=== PATIENT | female | born 1965 | race Caucasian/White ===

== ENCOUNTER 2017-04-18 17:00 | Inpatient (IN) | payer MEDICARE, MEDICAID ==
[~2017-04-18] VITALS: Ht 167.6 cm; Wt 81.8 kg
[2017-04-18 17:34] VITALS: BP 118/77
[2017-04-18 18:44] LABS: BASOPHILS 0.5 % (0-2); EOSINOPHILS 3.3 % (0-7); HEMATOCRIT 35.8 % (36.0-48.0); IMMATURE GRANULOCYTES 0.2 % (0-5); LYMPHOCYTES 31.3 % (15-50); MCH 28.6 pg (26.0-34.0); MCHC 30.7 g/dL (31.0-37.0); MCV 93.2 fL (80.0-100.0); MEAN PLATELET VOLUME 9.6 fL (7.4-10.4); MONOCYTES 6.8 % (2-11); NEUTROPHILS 57.9 % (40-80); RBC 3.84 10x6/uL (4.00-5.40); RDW 20.5 % (11.5-14.5); WBC 4.3 10x3/uL (4.8-10.8)
[2017-04-18 18:49] LABS: PLATELET COUNT 242 10x3/uL (130-400)
[2017-04-18 19:14] LABS: ALBUMIN 4.3 g/dL (3.4-5.0); ALKALINE PHOSPHATASE 66 U/L (46-116); ALT (SGPT) 30 U/L (10-68); BILIRUBIN - TOTAL 0.17 mg/dL (0.2-1.3); CALC OSMOLALITY 290 mosm/kg (275-300); CALCIUM 8.4 mg/dL (8.5-10.1); CARBON DIOXIDE 25.8 mmol/L (21.0-32.0); CHLORIDE - SERUM 107 mmol/L (98-107); CREATININE - SERUM 0.7 mg/dL (0.6-1.3); GLUCOSE 175 mg/dL (74-106); POTASSIUM - SERUM 4.4 mmol/L (3.5-5.1); PROTEIN - SERUM 5.6 g/dL (6.4-8.2); SODIUM 143 mmol/L (136-145); UREA NITROGEN 17 mg/dL (7-18); eGFR NON AFRICAN AMERICAN > 90 mL/min (90-120)
[2017-04-18 20:00] VITALS: BP 120/45
--- NOTE | 2017-04-18 20:00 | NUR ---
ASSESSMENT PER ADMIT PACKET. IV SALINE LOCKED RT ARM SITE CLEAR. FAMILY MEMBERS AT BEDSIDE. NEURO CHECKS DONE RT SIDED WEAKNESS NOTED SHEECH CLEAR ALERT/ORIENTED X3. UP TO BR SHOWER TAKEN WITH HELP OF HER DAUGHTER.
[2017-04-18] MEDS ORDERED: BAYER CHEWABLE81 MG PO (20:20)
[2017-04-18] MEDS ORDERED: LIPITOR80 MG PO (20:21)
[2017-04-18] MEDS ORDERED: KEPPRA500 MG PO (20:21)
[2017-04-18] MEDS ORDERED: ESTRACE1 MG PO (20:23)
[2017-04-18] MEDS ORDERED: ZOFRAN ODT4 MG/UDTAB PO (20:24)
[2017-04-18] MEDS ORDERED: BACLOFEN10 MG PO (20:24)
[2017-04-18] MEDS ORDERED: NEURONTIN 300300 MG PO (20:26)
[2017-04-18] MEDS ORDERED: PROZAC20 MG PO (20:26)
[2017-04-18] MEDS ORDERED: HYDROCODONE-APA1 TAB PO (20:27)
[2017-04-18] MEDS ORDERED: SYNTHROID125 MCG PO (20:28)
[2017-04-18] MEDS ORDERED: PROVERA2.5 MG PO (20:28)
[2017-04-18] MEDS ORDERED: SINGULAIR10 MG PO (20:29)
[2017-04-18] MEDS ORDERED: MOVANTIK25 MG PO (20:30)
[2017-04-18] MEDS ORDERED: MULTIPLE VITAMI1 TA1 PO (20:30)
[2017-04-18] MEDS ORDERED: PROTONIX40 MG PO (20:31)
[2017-04-18] MEDS ORDERED: CARAFATE1 G PO (20:32)
[2017-04-18] MEDS ORDERED: PHENERGAN25 M1 PO (20:32)
[2017-04-18] MEDS ORDERED: REQUIP0.25 MG PO (20:32)
[2017-04-18] MEDS ORDERED: ZANAFLEX4 MG PO (20:33)
[2017-04-18 20:34] VITALS: Ht 167.6 cm; Wt 81.8 kg
--- NOTE | 2017-04-18 21:00 | NUR ---
PT CONCERNED ABOUT HER HOME MEDS AND DR. FLORENTINO HAS NOT COME YET. NOTIFIED SUELLEN FELDMAN ORDERS REC'D.
--- NOTE | 2017-04-18 22:00 | NUR ---
DR. FLORENTINO PER ORDERS REC'D. MEDS GIVEN PER DEC. RADHA TAB ONE GIVEN FOR PAIN CONTROL OF HEAD AND BACK. RATES PAIN LEVEL #10.
[2017-04-19] VITALS: BP 97/49
--- NOTE | 2017-04-19 | NUR ---
EYES CLOSED RESPIRATIONS WITH EASE AND UNLABORED. NEURO CHECKS REMAIN UNCHANGED. RT SIDED WEAKNESS REMAINS SPEECH CLEAR AND APPROPRIATE.
--- NOTE | 2017-04-19 02:00 | NUR ---
EYES CLOSED RESPIRATIONS WITH EASE AND ULABORED. TELM SHOWS SB WITH HR 56.
[2017-04-19 04:00] VITALS: BP 96/62
--- NOTE | 2017-04-19 04:30 | NUR ---
EYES CLOSED RESPIRATIONS WITHEASE AND UNLABORED.
[2017-04-19 05:00] LABS: BASOPHILS 0.4 % (0-2); EOSINOPHILS 4.4 % (0-7); HEMATOCRIT 35.3 % (36.0-48.0); HEMOGLOBIN 10.8 g/dL (12-16); LYMPHOCYTES 44.8 % (15-50); MCHC 30.6 g/dL (31.0-37.0); MCV 94.6 fL (80.0-100.0); MEAN PLATELET VOLUME 10.1 fL (7.4-10.4); MONOCYTES 8.8 % (2-11); NEUTROPHILS 41.6 % (40-80); PLATELET COUNT 254 10x3/uL (130-400); RBC 3.73 10x6/uL (4.00-5.40); RDW 20.7 % (11.5-14.5); WBC 4.6 10x3/uL (4.8-10.8)
[2017-04-19 05:26] LABS: ALKALINE PHOSPHATASE 58 U/L (46-116); CARBON DIOXIDE 30.7 mmol/L (21.0-32.0); CHLORIDE - SERUM 109 mmol/L (98-107); CREATININE - SERUM 0.7 mg/dL (0.6-1.3); POTASSIUM - SERUM 4.5 mmol/L (3.5-5.1); PROTEIN - SERUM 5.1 g/dL (6.4-8.2); SODIUM 144 mmol/L (136-145); UREA NITROGEN 16 mg/dL (7-18); eGFR NON AFRICAN AMERICAN > 90 mL/min (90-120)
--- NOTE | 2017-04-19 05:40 | NUR ---
NO CHANGES IN ASSESSMENT.
[2017-04-19 05:55] LABS: ALBUMIN 2.8 g/dL (3.4-5.0); ALT (SGPT) 21 U/L (10-68); CALC OSMOLALITY 286 mosm/kg (275-300); CALCIUM 8.7 mg/dL (8.5-10.1); GLUCOSE 83 mg/dL (74-106)
--- NOTE | 2017-04-19 07:15 | NUR ---
REPORT RECEIVED FROM NON PROFIT FINANCIAL CONTROLLER NURSE. CALL LIGHT IN REACH.
--- NOTE | 2017-04-19 07:46 | NUR ---
ASSESSMENT COMPLETED. REQUESTING PAIN MEDS SO NORCO GIVEN WITH AM MEDS. OFFERED SCDs BUT PATIENT REFUSED. DAUGHTER AT BEDSIDE. NPO NOW FOR CTA. CALL LIGHT IN REACH. WILL CONTINUE WITH PLAN OF CARE.
--- NOTE | 2017-04-19 08:25 | NUR ---
IV SITED TO RIGHT AC WITH 20 GA X2 STICKS FOR CTA.
[2017-04-19 08:44] VITALS: BP 112/64
--- NOTE | 2017-04-19 09:50 | NUR ---
Patient Name: ANATOLY ZARCO Admission Status: Elective Accout number: [id number] Admission Date: 04-18-2017 : 1965 Admission Diagnosis: Attending: PHILL Current LOS: 1 Anticipated DC Date: 04-21-2017 Planned Disposition: Home Primary Insurance: [facility] Discharge Planning Comments: CM MET WITH PATIENT AND DAUGHTER (NOEMI) REGARDING D/C NEEDS AND PLANS. PATIENT STATED HER DAUGHTER AND SON LIVE WITH HER AND HELPS WHEN NEEDED. PATIENTS DAUGHTER WILL DRIVE HER HOME AT DISCHARGE AND THERE ARE NO STEPS OR STAIRS AT HER HOME. PATIENT IS INDEPENDENT WITH HER CARE AND HAS A WALKER, AND GLUCOMETER (NO STRIPS) AT HOME. PATIENTS PCP IS DR. CROWDER AND PHARMACY IS [facility]. PATIENT STATED SHE CAME HERE FROM [facility] AND WILL GO HOME AT DISCHARGE AND DOES NOT WANT HOME HEALTH. CM WILL CONTINUE TO FOLLOW PATIENT WITH D/C NEEDS AND PLANS. PCP DR. VEL BERRIOS [facility]- [phone] NOEMI (DAUGHTER) [phone] Mixing Machine Attendant: May Shah Is the patient Alert and Oriented? Yes 0 * How many steps to enter\exit or inside your home? 0 0 * PCP DR. CROWDER 0 * [facility] 0 * Preadmission Environment Home with Family 0 * ADLs Independent 0 * Equipment Glucometer Walker 0 * List name and contact numbers for known caregivers / representatives who currently or will assist patient after discharge: NOEMI (DAUGHTER) [phone] 0 * Community resources currently utilized None 0 * Additional services required to return to the preadmission environment? Yes 0 * Can the patient safely return to the preadmission environment? Yes 0 * Has this patient been hospitalized within the prior 30 days at any hospital? No 0 Grand Total: 0
--- NOTE | 2017-04-19 10:27 | NUR ---
TO CT VIA BED.
--- NOTE | 2017-04-19 10:53 | NUR ---
BACK IN ROOM AT THIS TIME.
--- NOTE | 2017-04-19 11:44 | NUR ---
TORADOL 30 MG SIVP PER C/O PAIN OF 9. FAMILY IN ROOM. CALL LIGHT IN REACH.
--- NOTE | 2017-04-19 12:50 | NUR ---
PATEINT IN MID HERNANDEZ POSITION RESTING WITH EYES CLOSED. RESPIRATIONS EVEN AND UNLABORED. SIDE RAILS UP X2. BED IN LOW POSITION. CALL LIGHT IN REACH.
--- NOTE | 2017-04-19 13:29 | NUR ---
ZOFRAN AND DEMEROL SIVP PER C/O NAUSEA AND PAIN.
[2017-04-19 13:37] VITALS: BP 118/68
--- NOTE | 2017-04-19 15:18 | NUR ---
STILL C/O HEADACHE. SOLUMEDROL IV WITH NORCO PO AND OTHER AFTERNOON MEDS. CALL LIGHT IN REACH. DAUGHTER IN ROOM.
[2017-04-19 16:35] VITALS: BP 122/64
--- NOTE | 2017-04-19 16:56 | NUR ---
STATES PAIN HAS DECREASED TO A 7 NOW.
--- NOTE | 2017-04-19 17:11 | NUR ---
OT NOTE: PT COMPLETED GROOMING TASK WITH SET UP. PT COMPLETED BED MOB WITH SBA. PT COMPLETED BUE AROM EXS FOR INCREASED I WITH ADLS. THANK YOU, AILIN BERUMEN/Hu
--- NOTE | 2017-04-19 18:09 | NUR ---
NO CHANGES IN INITIAL ASSESSMENT. STILL REFUSES SCDs. CALL LIGHT IN REACH. WILL CONTINUE WITH PLAN OF CARE.
--- NOTE | 2017-04-19 19:25 | NUR ---
REQUESTING FOR BLOOD SUGAR TO GET TAKEN. IT WAS 183.
--- NOTE | 2017-04-19 19:30 | NUR ---
ASSESSMENT PER FLOWSHEET. RT SIDED WEAKNESS. CONTINUES SPEECH CLEAR AND APPROPRIATE. FOLLOWS COMMANDS. SALINE LOCK PATEMT RT HAND AND LEFT AC. SITES X2 CLAEAR. FAMILY MEMBERS AT BEDSIDE. SITTING UPRIGHT IN BED SR UP X2 CALL LIGHT WITHIN REACH.
[2017-04-19 20:00] VITALS: BP 123/74
--- NOTE | 2017-04-19 20:07 | NUR ---
C/O NAUSEA. ZOFRAN 4MG IVP GIVEN FOR NAUSEA. NOW REQUESTING A SANDWICH TRAY AND WANTS BLOOD SUGAR CHECKED. RESULTS =122.
--- NOTE | 2017-04-19 21:26 | NUR ---
C/O PAIN IN HEAD AND BACK RATES PAIN #7. TORADOL 30MG IVP GIVEN FOR PAIN CONTROL.
[2017-04-20] VITALS: BP 119/68
--- NOTE | 2017-04-20 | NUR ---
NEURO CHECKS REMAIN UNCHANGED.
--- NOTE | 2017-04-20 02:00 | NUR ---
EYES CLOSED RESPIRATIONS WITH EASE AND UNALBORED.
--- NOTE | 2017-04-20 03:57 | NUR ---
EYES CLOSED RESPIRATIONS WITH EASE AND UNLABORED. NEURO STATUS UNCHANGED.
[2017-04-20 04:00] VITALS: BP 101/56
[2017-04-20 06:19] LABS: BASOPHILS 0.2 % (0-2); EOSINOPHILS 0.5 % (0-7); HEMATOCRIT 36.7 % (36.0-48.0); HEMOGLOBIN 11.4 g/dL (12-16); IMMATURE GRANULOCYTES 0.2 % (0-5); LYMPHOCYTES 24.6 % (15-50); MCH 28.9 pg (26.0-34.0); MCHC 31.1 g/dL (31.0-37.0); MCV 93.1 fL (80.0-100.0); MONOCYTES 7.2 % (2-11); NEUTROPHILS 67.3 % (40-80); PLATELET COUNT 266 10x3/uL (130-400); RBC 3.94 10x6/uL (4.00-5.40); RDW 20.1 % (11.5-14.5)
[2017-04-20 06:30] LABS: WBC 6.2 10x3/uL (4.8-10.8)
[2017-04-20 06:46] LABS: ALBUMIN 2.8 g/dL (3.4-5.0); ALKALINE PHOSPHATASE 64 U/L (46-116); ALT (SGPT) 23 U/L (10-68); CALC OSMOLALITY 288 mosm/kg (275-300); CALCIUM 8.5 mg/dL (8.5-10.1); CARBON DIOXIDE 30.7 mmol/L (21.0-32.0); CHLORIDE - SERUM 110 mmol/L (98-107); CHOL - HDL RATIO 1.9 ratio (2.3-4.1); CHOLESTEROL, TOTAL 137 mg/dL (0-200); CREATININE - SERUM 0.8 mg/dL (0.6-1.3); GLUCOSE 86 mg/dL (74-106); HDL CHOLESTEROL 74 mg/dL (32-96); LDL CHOLESTEROL 54 mg/dL (0-100); LDL-HDL RATIO 0.7 ratio (1.5-3.5); POTASSIUM - SERUM 4.3 mmol/L (3.5-5.1); PROTEIN - SERUM 5.3 g/dL (6.4-8.2); SODIUM 145 mmol/L (136-145); TRIGLYCERIDE 47 mg/dL (30-200); UREA NITROGEN 16 mg/dL (7-18); eGFR NON AFRICAN AMERICAN 80 mL/min (90-120)
--- NOTE | 2017-04-20 07:35 | NUR ---
PRN NORCO-10 ADMINISTERED FOR PAIN 10/10 TO HEAD AND BACK. DAUGHTER AT BEDSIDE. ASSESSMENT PERFORMED PER FLOWSHEET. PROVIDED PT WITH ICE WATER AND COFFEE AT THIS TIME. DENIES FURTHER NEEDS. CALL LIGHT IN REACH, WILL CONTINUE WITH PLAN OF CARE.
--- NOTE | 2017-04-20 08:15 | NUR ---
SCHEDULED MEDICATIONS ADMINISTERED AT THIS TIME.
[2017-04-20 09:14] LABS: CA125 6.6 U/mL (0.0-38.1)
[2017-04-20 10:13] VITALS: BP 128/73
[2017-04-20 10:17] LABS: ANA REFLEX - DIRECT Negative (Negative)
[2017-04-20] MEDS ORDERED: ASPIRIN325 MG PO (10:56)
[2017-04-20] MEDS ORDERED: PLAVIX75 MG PO (10:58)
--- NOTE | 2017-04-20 11:02 | NUR ---
PRN TORADOL ADMINISTERED AT THIS TIME FOR PAIN 8/10 IN HEAD AND BACK. IV TO LEFT AC PATENT. PT TO D/C HOME WITH HOME HEALTH TODAY. DAUGHTER AT BEDSIDE. DENIES FURTHER NEEDS. WILL CONTINUE WITH PLAN OF CARE.
[2017-04-20 11:17] LABS: ACLA - IGG AB <9 GPL U/mL (0-14); ACLA - IGM AB <9 MPL U/mL (0-12)
[2017-04-20 12:27] VITALS: BP 102/67
--- NOTE | 2017-04-20 12:35 | NUR ---
DISCHARGE PAPERWORK PROVIDED TO PT. PT STATES THAT SHE WOULD LIKE TO FOLLOW UP WITH HER PRIMARY CARE DRJonna WILL WAIT ON PT TO FINISH LUNCH BEFORE D/C PAPERWORK REVIEWED.
--- NOTE | 2017-04-20 12:50 | NUR ---
DISCHARGE INSTRUCTIONS REVIEWED WITH PT AND IV TO LEFT AC D/C WITH CATH TIP INTACT. PT DENIES QUESTIONS OR CONCERNS. TO D/C HOME WITH DAUGHTER.
--- NOTE | 2017-04-20 13:02 | NUR ---
CM REASSESSMENT NOTE: PATIENT IS DISCHARGING HOME TODAY WITH [facility]/WALKER PROVIDED BY [facility]ARE [facility]/ DAUGHTER IS DRIVING PATIENT HOME. IMM SERVED
[2017-04-21 08:19] LABS: LUPUS - INTERPRETATION Comment: (()); LUPUS - THROMBIN TIME 24.9 sec (0.0-20.9); LUPUS - dRVVT 36.3 sec (0.0-47.0); PTT-LA 30.8 sec (0.0-51.9)
[2017-04-21 10:20] LABS: PROTEIN S - FREE 126 % (57-157); PROTEIN S - FUNCTIONAL 121 % (63-140); PROTEIN S - TOTAL 106 % (60-150)
[2017-04-21 12:17] LABS: PROTEIN C - ANTIGEN 113 % (60-150); PROTEIN C - FUNCTIONAL 145 % (73-180)
[2017-04-21 17:13] LABS: HGB - A 97.8 % (94.0-98.0); HGB - A2 2.2 % (0.7-3.1); HGB - INTERPRETATION Note: (()); HGB - SOLUBILITY Negative (Negative)
== END 2017-04-20 12:57 | disposition home health service (06) | DRG 65 ==
LOC: D.MS 17:00
PROVIDERS: Psychiatry & Neurology Neurology; ADMIT Family Medicine
DX: I63.9 Cerebral infarction, unspecified (principal); G81.91 Hemiplegia, unspecified affecting right dominant side; R47.1 Dysarthria and anarthria; H53.9 Unspecified visual disturbance; I10 Essential (primary) hypertension; E03.9 Hypothyroidism, unspecified; G89.29 Other chronic pain; M54.5 Low back pain; R51 Headache; G47.33 Obstructive sleep apnea (adult) (pediatric); K21.9 Gastro-esophageal reflux disease without esophagitis; Z87.891 Personal history of nicotine dependence

== ENCOUNTER 2017-09-15 21:02 | Emergency (ER) | payer MEDICARE, MEDICAID ==
[2017-04-18 20:34] VITALS: BMI 29.1
[~2017-09-15 21:02] MED LIST: ASPIRIN325 MG PO; BACLOFEN10 MG PO; BAYER CHEWABLE81 MG PO; CARAFATE1 G PO; ESTRACE1 MG PO; HYDROCODONE-APA1 TAB PO; KEPPRA500 MG PO; LIPITOR80 MG PO; MOVANTIK25 MG PO; MULTIPLE VITAMI1 TA1 PO; NEURONTIN 300300 MG PO; PHENERGAN25 M1 PO; PLAVIX75 MG PO; PROTONIX40 MG PO; PROVERA2.5 MG PO; PROZAC20 MG PO; REQUIP0.25 MG PO; SINGULAIR10 MG PO; SYNTHROID125 MCG PO; ZANAFLEX4 MG PO; ZOFRAN ODT4 MG/UDTAB PO
== END 2017-09-15 23:18 | disposition home or self-care (01) ==
LOC: D.ER 21:02
DX: M54.16 Radiculopathy, lumbar region (principal)

== ENCOUNTER 2017-10-07 14:02 | Emergency (ER) | payer MEDICARE, MEDICAID ==
[2017-04-18 20:34] VITALS: BMI 29.1
== END 2017-10-07 15:12 | disposition home or self-care (01) ==
LOC: D.ER 14:02
DX: M54.16 Radiculopathy, lumbar region (principal); I10 Essential (primary) hypertension

== ENCOUNTER 2017-11-18 17:29 | Emergency (ER) | payer MEDICARE, MEDICAID ==
[2017-04-18 20:34] VITALS: BMI 29.1
== END 2017-11-18 19:57 | disposition home or self-care (01) ==
LOC: D.ER 17:29
DX: M54.5 Low back pain (principal); I10 Essential (primary) hypertension

== ENCOUNTER 2017-12-13 13:42 | Emergency (ER) | payer MEDICARE, MEDICAID ==
[2017-04-18 20:34] VITALS: BMI 29.1
[2017-12-13 14:15] LABS: APPEARANCE SLT CLOUDY (CLEAR); COLOR YELLOW (YELLOW)
[2017-12-13 14:16] LABS: BACTERIA MODERATE /hpf (NONE SEEN); BILIRUBIN NEGATIVE (NEGATIVE); GLUCOSE NEGATIVE (NEGATIVE); KETONE NEGATIVE (NEGATIVE); MUCUS <1+ /lpf (NONE SEEN); NITRITE NEGATIVE (NEGATIVE); PROTEIN NEGATIVE (NEGATIVE); UROBILINOGEN NORMAL (NORMAL); WHITE CELLS - URINE OCC /hpf (0-5)
== END 2017-12-13 15:42 | disposition home or self-care (01) ==
LOC: D.ER 13:42
PROVIDERS: Emergency Medicine
DX: S39.012A Strain of muscle, fascia and tendon of lower back, initial encounter (principal); X58.XXXA Exposure to other specified factors, initial encounter; Y93.89 Activity, other specified; Y92.019 Unspecified place in single-family (private) house as the place of occurrence of the external cause; I10 Essential (primary) hypertension

== ENCOUNTER 2018-12-04 14:05 | Emergency (ER) | payer MEDICARE, MEDICAID ==
[~2018-12-04] VITALS: Ht 167.6 cm; Wt 105.5 kg
[2018-12-04 14:25] VITALS: Ht 167.6 cm; Wt 105.5 kg
[2018-12-04] MEDS ORDERED: LYRICA75 MG PO (15:32)
[2018-12-04] MEDS ORDERED: ZANAFLEX4 MG PO (15:32)
[2018-12-04 15:52] VITALS: BP 135/71
== END 2018-12-04 15:53 | disposition home or self-care (01) ==
LOC: D.ER 14:05
DX: M54.5 Low back pain (principal)

== ENCOUNTER 2020-06-03 14:53 | Emergency (ER) | payer MEDICARE, MEDICAID ==
[~2020-06-03] VITALS: Ht 167.6 cm; Wt 77.3 kg
[~2020-06-03 14:53] MED LIST changes: +LYRICA75 MG PO
[2020-06-03 14:56] VITALS: Ht 167.6 cm; Wt 77.3 kg
[2020-06-03 15:34] VITALS: BP 147/82
== END 2020-06-03 15:35 | disposition home or self-care (01) ==
LOC: D.ER 14:53
DX: M54.31 Sciatica, right side (principal); E03.9 Hypothyroidism, unspecified; I10 Essential (primary) hypertension; K21.9 Gastro-esophageal reflux disease without esophagitis